=== PATIENT | male | born 1990 | race Caucasian/White ===

== ENCOUNTER 2016-11-10 01:13 | Emergency (ER) | payer OTHER ==
[~2016-11-10] VITALS: Ht 182.9 cm; Wt 108.9 kg
[2016-11-10 01:18] VITALS: BP 151/60
[2016-11-10] MEDS ORDERED: HYDROCODONE/APAP 10/325MG 1 EA TABLET PO ONE (03:00)
[2016-11-10] MEDS ORDERED: HYDROCODONE/APAP 10/325MG 1 EA TABLET ONE (03:02)
== END 2016-11-10 03:20 | disposition home or self-care (01) ==
LOC: ER 01:14
DX: S90.121A Contusion of right lesser toe(s) without damage to nail, initial encounter (principal); F17.200 Nicotine dependence, unspecified, uncomplicated; I10 Essential (primary) hypertension; W22.8XXA Striking against or struck by other objects, initial encounter; Y93.02 Activity, running; Y92.89 Other specified places as the place of occurrence of the external cause; Y99.8 Other external cause status
CPT/HCPCS: 73630-TC; A4606; Z7610

== ENCOUNTER 2017-03-25 01:49 | Emergency (ER) | payer OTHER ==
[~2017-03-25] VITALS: Ht 182.9 cm; Wt 111.1 kg
[2017-03-25 02:04] VITALS: BP 171/88
--- NOTE | 2017-03-25 02:30 | NUR ---
Dr Chávez at bedside to evaluate patient.
[2017-03-25] MEDS ORDERED: IBUPROFEN 400 MG TABLET ONE (02:35)
[2017-03-25] MEDS: IBUPROFEN 400 MG TABLET PO ONE (02:36)
== END 2017-03-25 03:19 | disposition home or self-care (01) ==
LOC: ER 01:50
DX: R07.89 Other chest pain (principal); M94.0 Chondrocostal junction syndrome [Tietze]; I10 Essential (primary) hypertension; F17.200 Nicotine dependence, unspecified, uncomplicated; F10.10 Alcohol abuse, uncomplicated
CPT/HCPCS: 99282; A4606; Z7610

== ENCOUNTER 2023-07-16 11:48 | Emergency (ER) | payer OTHER ==
[~2023-07-16] VITALS: Ht 182.9 cm; Wt 99.8 kg
[2023-07-16 13:16] LABS: BASOPHILS % (AUTO) 0.4 % (0.0-2.0); EOSINOPHILS # (AUTO) 0.1 K/uL (0.0-0.7); EOSINOPHILS % (AUTO) 1.5 % (0.0-6.0); HEMATOCRIT 45 % (39-51); HEMOGLOBIN 15.9 g/dL (13.5-17.5); LYMPHOCYTES # (AUTO) 1.9 K/uL (0.8-4.8); LYMPHOCYTES % (AUTO) 20.5 % (20.0-44.0); MEAN CORPUSCULAR HEMOGLOBIN 31 PG (26.0-33.0); MEAN CORPUSCULAR HGB CONC 35 g/dl (31.0-36.0); MEAN CORPUSCULAR VOLUME 89 fL (80-96); MONOCYTES # (AUTO) 0.5 K/uL (0.1-1.30); MONOCYTES % (AUTO) 5.2 % (2.0-12.0); NEUTROPHILS # (AUTO) 6.6 K/uL (1.8-8.9); NEUTROPHILS % (AUTO) 72.4 % (43.0-81.0); PLATELET COUNT (AUTO) 158 K/uL (150-450); RED BLOOD CELL COUNT(AUTO) 5.09 MIL/uL (4.5-6.0); RED CELL DISTRIBUTION WIDTH 13.2 % (11.5-15.0); WHITE BLOOD COUNT (AUTO) 9.2 K/uL (4.3-11.0)
[2023-07-16 13:25] LABS: POTASSIUM 4.4 mmol/L (3.5-5.1); SODIUM SERUM 140 mmol/L (136-145)
[2023-07-16 13:26] LABS: CALCIUM, SERUM 9.2 mg/dL (8.5-10.1); CARBON DIOXIDE 28 mmol/L (21-32); CHLORIDE 107 mmol/L (98-107); CREATININE 0.8 mg/dL (0.6-1.3); GLUCOSE 90 mg/dL (74-106); UREA NITROGEN, BLOOD 17 mg/dL (7-18)
[2023-07-16] MEDS ORDERED: IBUP-1955 PO (14:28)
[2023-07-16] MEDS ORDERED: LIDO30AD10 TP (14:28)
[2023-07-16 14:38] VITALS: BP 115/81; TEMP 98.7; O2SAT 98
== END 2023-07-16 14:38 | disposition home or self-care (01) ==
LOC: ER 12:00
DX: R07.89 Other chest pain (principal); R05.9 Cough, unspecified; R06.7 Sneezing; I10 Essential (primary) hypertension; Z72.0 Tobacco use
CPT/HCPCS: 36415; 71100-TC; 80048-TC; 84484-TC; 85025-TC